=== PATIENT | male | born 1975 | race Caucasian/White ===

== ENCOUNTER 2017-01-10 17:59 | Emergency (ER) | payer BC, OTHER ==
[~2017-01-10] VITALS: Ht 177.8 cm; Wt 74.8 kg
[2017-01-10 18:09] VITALS: TEMP 37.2; Ht 177.8 cm; Wt 74.8 kg
[2017-01-10] MEDS ORDERED: AMPICILLIN/SULBACTAM SOD INJ 3,000 MG in SODIUM CHLORIDE 0.9% 100ML 100 ML IV STA (18:25)
--- NOTE | 2017-01-10 18:44 | EMERGENCY ROOM VISIT NOTE ---
History First contact with patient: 18:15 Chief Complaint: DENTAL PAIN Stated Complaint: SWOLLEN FACE, PAIN IN JAW/TOOTH History of Present Illness The patient is a 41 year old male who presents to the Emergency Room with complaints of right lower dental pain and facial swelling for the last 2 days. The patient denies any fever or chills. He thinks it is coming from a right lower molar. He is having difficulty opening his mouth. He does not currently have a dentist or a primary care doctor. Review of Systems 6 system review negative. Please see pertinent positives in the history of present illness section. Past Medical/Surgical History Otherwise healthy Social History Smoking Status: Current Every Day Smoker Alcohol Use: occasionally Marital Status: Housing Status: lives with significant other Occupation Status: employed Current/Historical Medications Scheduled Amoxicillin & Pot Clavulanate (Augmentin 875-125 mg), 1 TAB PO BID Naproxen (Aleve), 440 MG PO BID Scheduled PRN Ibuprofen (Advil), 600 MG PO TID PRN for Pain Oxycodone/Acetaminophen 5MG/325MG (Percocet 5MG/325MG), 1 TAB PO Q4H PRN for Pain Physical Exam Vital Signs Date Time Temp Pulse Resp B/P (MAP) Pulse Ox O2 Delivery O2 Flow Rate FiO2 01/10/17 21:41 61 126/72 98 01/10/17 18:09 37.2 67 20 139/91 94 Room Air Physical Exam VITALS: Vitals are noted on the nurse's note and reviewed by myself. Vital signs stable. GENERAL: 41-year-old male, in no acute distress, nondiaphoretic, well-developed well-nourished. SKIN: The skin was intact HEAD: Significant edema in the right mandibular area. No area of fluctuance. MOUTH: Left lower molars are very carious and fractured. Significant amount of gum swelling noted. Patient is having difficulty opening his mouth fully. No area of fluctuance or pointing. NECK: Supple without nuchal rigidity. No lymphadenopathy. Cervical spine is nontender. No JVD. HEART: Regular rate and rhythm without murmurs gallops or rubs. LUNGS: Clear to auscultation bilaterally without wheezes, rales or rhonchi. No accessory muscle use. ABDOMEN: Positive bowel sounds x 4.Soft, nontender, without organomegaly. No guarding or rebound tenderness. MUSCULOSKELETAL: No muscle atrophy, erythema, or edema noted. Strength 5/5 throughout. NEURO: Patient was alert and oriented to person place and time. Normal sensation to touch. No focal neurological deficits. Medical Decision & Procedures ER Provider Diagnostic Interpretation: Facial CT with contrast IMPRESSION: 1. There is a 1.8 x 0.5 cm abscess abutting the buccal surface of the distal body/angle of the left hemimandible as described above. There are 2 periapical lucencies within the left mandibular teeth as described above which may both account for this abscess. 2. There is subcutaneous and soft tissue fat stranding within the left mandibular region. There is thickening of the left masseter muscle and mild enhancement of the left submandibular gland. There is mild edema surrounding the left submandibular gland and there are a few enlarged left submandibular lymph nodes. These findings are likely reactive to the adjacent abscess. 3. Additional periodontal disease described above. Electronically signed by: Girish Mcfarlane M.D. 01/10/2017 8:48 PM Dictated Date/Time: 01/10/2017 8:38 PM The status of this report is Signed. Draft = Not yet reviewed or approved by Radiologist. Signed = Reviewed and approved by Radiologist. <AttendingPhy></AttendingPhy> <FamilyPhy>No Doctor, Assigned</FamilyPhy> < PrimaryPhy>No Doctor, Assigned</PrimaryPhy> <UnitNumber>[id number]</UnitNumber> <VisitNumber>[id number]</VisitNumber> <PatientName>MAKENZIE SCHMIDT</PatientName > <DateOfBirth>1975</DateOfBirth> <Location>[facility]</Location> <ServiceDate> 01/10/17</ServiceDate> <MNE>ESINDI</MNE> <OrderingPhy> Laboratory Results 01/10/17 18:34 Red Blood Count 4.59, Mean Corpuscular Volume 98.5, Mean Corpuscular Hemoglobin 34.2, Mean Corpuscular Hemoglobin Concent 34.7, Mean Platelet Volume 9.9, Neutrophils (%) (Auto) 75.9, Lymphocytes (%) (Auto) 16.2, Monocytes (%) (Auto) 6.6, Eosinophils (%) (Auto) 1.0, Basophils (%) (Auto) 0.2, Neutrophils # (Auto) 6.97, Lymphocytes # (Auto) 1.49, Monocytes # (Auto) 0.61, Eosinophils # (Auto) 0.09, Basophils # (Auto) 0.02 01/10/17 18:34 Test 01/10/17 18:34 White Blood Count 9.19 K/uL (4.8-10.8) Red Blood Count 4.59 M/uL (4.7-6.1) Hemoglobin 15.7 g/dL (14.0-18.0) Hematocrit 45.2 % (42-52) Mean Corpuscular Volume 98.5 fL (80-100) Mean Corpuscular Hemoglobin 34.2 pg (25-34) Mean Corpuscular Hemoglobin Concent 34.7 g/dl (32-36) Platelet Count 156 K/uL (130-400) Mean Platelet Volume 9.9 fL (7.4-10.4) Neutrophils (%) (Auto) 75.9 % Lymphocytes (%) (Auto) 16.2 % Monocytes (%) (Auto) 6.6 % Eosinophils (%) (Auto) 1.0 % Basophils (%) (Auto) 0.2 % Neutrophils # (Auto) 6.97 K/uL (1.4-6.5) Lymphocytes # (Auto) 1.49 K/uL (1.2-3.4) Monocytes # (Auto) 0.61 K/uL (0.11-0.59) Eosinophils # (Auto) 0.09 K/uL (0-0.5) Basophils # (Auto) 0.02 K/uL (0-0.2) RDW Standard Deviation 45.0 fL (36.4-46.3) RDW Coefficient of Variation 12.5 % (11.5-14.5) Immature Granulocyte % (Auto) 0.1 % Immature Granulocyte # (Auto) 0.01 K/uL (0.00-0.02) Anion Gap 10.0 mmol/L (3-11) Est Creatinine Clear Calc Drug Dose 79.2 ml/min Estimated GFR () 80.6 Estimated GFR (Non- 69.5 BUN/Creatinine Ratio 9.1 (10-20) Calcium Level 10.1 mg/dl (8.5-10.1) Medications Administered Medications (Trade) Dose Ordered Sig/Gutierrez Route Start Time Stop Time Status Last Admin Dose Admin Ampicillin Sodium/ Sulbactam Sodium 3000 mg/Sodium Chloride 108 ml @ 200 mls/hr NOW STAT IV 01/10/17 18:25 01/10/17 18:57 DC 01/10/17 19:18 200 MLS/HR ED Course Patient was seen and examined Vital signs including blood pressure were reviewed medications list was verified with patient Labs were obtained, and a saline lock was established The patient was given 1 dose of Unasyn 3 g IV area he declined pain medication. Imaging was performed and reviewed The patient was reassessed. He said the pain is starting to increase, but he declined pain medication. We discussed the results of his workup. We also discussed disposition options. He would like to be discharged home. The patient was given a home pack of Percocet I reviewed discharge instructions the patient. They voiced understanding and had no further questions. Medical Decision Differential diagnosis: Dental caries, periapical abscess, facial cellulitis This patient is a 41-year-old male that presents to emergency department with complaints of dental pain and facial swelling. On exam, the patient does have significant caries and swelling surrounding his left lower molars. He has significant facial swelling. He is afebrile. He is nontoxic in appearance. His labs reveal no leukocytosis. His CAT scan does show an abscess and surrounding cellulitis stemming from a dental infection. Patient was treated with Unasyn in the emergency department. I discussed treatment options with the patient. He did not want to be admitted to the hospital. I believe he is stable to be discharged home with very close follow-up. He was given Dr. Ceja's number and instructed to call in the morning for follow-up. He agrees to return in the emergency department immediately with any new, worsening or concerning symptoms This chart was completed in part utilizing [employer] Speech Voice Recognition software. Attempts were made to minimize the grammatical errors, random word insertions, pronoun errors and incomplete sentences. Any formal questions or concerns about the content, text or information contained within the body of this dictation should be directly addressed to the provider for clarification. Medication Reconcilliation Current Medication List: was personally reviewed by me Blood Pressure Screening Patient's blood pressure: Elevated blood pressure Blood pressure disposition: Elevated BP felt to be situational Impression Primary Impression: Periapical abscess Departure Information Dispostion Home / Self-Care Condition FAIR Prescriptions Oxycodone/Acetaminophen 5MG/325MG (PERCOCET 5MG/325MG) Tab 1 TAB PO Q4H Y for Pain, #15 TAB For Initial Treatment Prov: Nichole Fish PA-C 01/10/17 Amoxicillin & Pot Clavulanate (Augmentin 875-125 mg) 1 Tab Tab 1 TAB PO BID for 10 Days, #20 TAB Prov: Nichole Fish PA-C 01/10/17 Referrals Jordan Ceja D.D.S. Patient Instructions My [facility] Additional Instructions You were evaluated in the emergency department for facial swelling and dental pain. You have an abscess associated with a dental infection in addition to cellulitis of the facial area It is very important for you to be seen by a dentist or oral surgeon as soon as possible. Please call the number provided tomorrow morning for a follow-up appointment. Please see that you're in the emergency department with an abscess. Please take the entire course of antibiotics. Please take this medication with food. I recommend eating Activia yogurt at least once daily with this medication. Ibuprofen 600 mg every 6 hours Percocet 1-2 tabs every 4 hours for severe pain. Do not drink alcohol or drive while taking this medication. This may be taken with ibuprofen, but avoid Tylenol. Please return to the emergency department with any new or worsening symptoms, especially increased redness, swelling, difficulty opening your mouth, swallowing or fever
[2017-01-10] MEDS ORDERED: OPTIRAY 320 IV PRN (18:45)
[2017-01-10 19:05] LABS: BASO % 0.2 %; BASO ABS # 0.02 K/uL (0-0.2); COMPLETE YES; HEMATOCRIT 45.2 % (42-52); IG% 0.1 %; LYMPH % 16.2 %; LYMPH ABS # 1.49 K/uL (1.2-3.4); MEAN CELL VOLUME 98.5 fL (80-100); MEAN CORPUSCULAR HEMOGLOBIN 34.2 pg (25-34); MEAN CORPUSCULAR HGB CONC 34.7 g/dl (32-36); MEAN PLATELET VOLUME 9.9 fL (7.4-10.4); MONO % 6.6 %; NEUT % 75.9 %; PLATELET COUNT 156 K/uL (130-400); RED BLOOD COUNT 4.59 M/uL (4.7-6.1); WHITE BLOOD COUNT 9.19 K/uL (4.8-10.8)
[2017-01-10 19:06] LABS: BUN/CREATININE RATIO 9.1 (10-20); CALCIUM 10.1 mg/dl (8.5-10.1); CREATININE 1.28 mg/dl (0.60-1.40); POTASSIUM 3.7 mmol/L (3.5-5.1)
[2017-01-10] MEDS ORDERED: NAPR1TAB9 PO (19:06)
[2017-01-10] MEDS ORDERED: IBUP-1050 PO (19:06)
--- NOTE | 2017-01-10 20:50 | DIAGNOSTIC IMAGING REPORT ---
MAXILLOFACIAL CT WITH INTRAVENOUS CONTRAST HISTORY: ? L lower molar infection/abscess TECHNIQUE: Multiaxial CT images of the maxillofacial region were performed and reformatted in the coronal plane following the use of intravenous contrast. COMPARISON STUDY: None. FINDINGS: The visualized brain parenchyma and orbits are unremarkable. Moderate mucosal thickening within the floor the left maxillary sinus and mild mucosal thickening within the right maxillary sinus. The mastoid air cells are clear. No fractures identified within the visualized osseous structures. There is a periapical lucency within the left upper molar (ADA 14). This measures 7 mm and extends into the floor of the left maxillary sinus. Multiple dental caries are identified. There is an additional 4 mm periapical lucency at ADA 20 which demonstrates cortical breakthrough along the buccal surface. There appears to be a small focus of gas and linear enhancing tract extending distally where there is a 1.8 x 0.5 cm peripheral enhancing fluid collection abutting the buccal surface of the distal body/angle of the left hemimandible. This is consistent with an abscess. This is best seen on image 188 of 250 of the axial sequences. There is subcutaneous and soft tissue fat stranding within the left mandibular region which is likely reactive. There is thickening of the left masseter muscle and mild enhancement of the left submandibular gland. There is mild edema surrounding the left submandibular gland and there are a few enlarged left submandibular lymph nodes. These are likely reactive to the adjacent abscess. There is also small periapical lucency within the left lower most distal molar. This may also account for the adjacent abscess. IMPRESSION: 1. There is a 1.8 x 0.5 cm abscess abutting the buccal surface of the distal body/angle of the left hemimandible as described above. There are 2 periapical lucencies within the left mandibular teeth as described above which may both account for this abscess. 2. There is subcutaneous and soft tissue fat stranding within the left mandibular region. There is thickening of the left masseter muscle and mild enhancement of the left submandibular gland. There is mild edema surrounding the left submandibular gland and there are a few enlarged left submandibular lymph nodes. These findings are likely reactive to the adjacent abscess. 3. Additional periodontal disease described above. Electronically signed by: Girish Mcfarlane M.D. 01/10/2017 8:48 PM Dictated Date/Time: 01/10/2017 8:38 PM
[2017-01-10] MEDS ORDERED: AMOX875T PO (21:24)
[2017-01-10] MEDS ORDERED: OXYC-57 PO (21:24)
[2017-01-10] MEDS ORDERED: PERCOCET HOME PACK PO ONE (21:30)
[2017-01-10 21:41] VITALS: BP 126/72; PULSE 61; O2SAT 98
== END 2017-01-10 21:40 | disposition home or self-care (01) ==
LOC: C.EDB 18:00 → C.EDA 21:40
DX: K04.7 Periapical abscess without sinus (principal); F17.200 Nicotine dependence, unspecified, uncomplicated